=== PATIENT | female | born 1970 | race Hispanic/Latino ===

== ENCOUNTER 2018-12-28 14:23 | Observation (INO) | payer MEDICARE, BC ==
[~2018-12-28] VITALS: Ht 180.3 cm; Wt 137.5 kg
[~2018-12-28 14:23] MED LIST: ALBU18HF7 IH; AMLO10TA7 PO; ATOR10 PO; BUPR-47 PO; CARV25TA PO; GABA-531 PO; HUM10VIA6 SQ; HYDR-4153 PO; LEVO250T59 PO; LOSA100T58 PO; MONT10TA24 PO; SEVE800 PO; SUCR500T PO; TRAM50TA4 PO; TRAZ-185 PO
[2018-12-28 15:14] LABS: BASOPHILS % (AUTO) 0.9 % (0.0-5.0); EOSINOPHILS % (AUTO) 5.4 % (0.0-8.0); HEMATOCRIT 25.8 % (36-48); LYMPHOCYTES % (AUTO) 17.8 % (21.0-51.0); MEAN CORPUSCULAR HEMOGLOBIN 33.3 pg (27.0-33.0); MEAN CORPUSCULAR HGB CONC 33.8 g/dL (32.0-36.0); MEAN CORPUSCULAR VOLUME 98.5 fL (79-99); MONOCYTES % (AUTO) 9.1 % (3.0-13.0); NEUTROPHILS % (AUTO) 66.8 % (40.0-77.0); PLATELET COUNT (AUTO) 323 K/uL (130-400); RED BLOOD CELL COUNT(AUTO) 2.62 MIL/uL (4.00-5.50); RED CELL DISTRIBUTION WIDTH 14.4 % (11.0-15.5); WHITE BLOOD COUNT (AUTO) 12.1 K/uL (4.8-10.8)
[2018-12-28 15:33] LABS: ALBUMIN 3.4 g/dL (3.5-5.0); BILIRUBIN,DIRECT 0.1 mg/dL (0.0-0.3); BILIRUBIN,TOTAL 0.3 mg/dL (0.2-1.0); POTASSIUM 4.8 mmol/L (3.5-5.1); TOTAL PROTEIN, SERUM 8.2 g/dL (6.0-8.3)
[2018-12-28 15:44] LABS: CREATININE 12.8 mg/dL (0.5-1.5)
[2018-12-28 15:50] LABS: INR 0.96 (0.85-1.15); PARTIAL THROMBOPLASTIN TIME 27.5 SEC (26.3-35.5); PROTHROMBIN TIME 10.1 SEC (9.6-11.6)
[2018-12-28] MEDS ORDERED: LIDOCAINE HCL 1% MDV 50ML VIAL ONE (16:43)
[2018-12-28 17:20] VITALS: BP 164/79
[2018-12-28 17:35] VITALS: BP 146/83
--- NOTE | 2018-12-28 17:35 | NUR ---
Received patient from [facility] Right IJ Slade. Dressing clean dry and intact. No s/s of bleeding. Pt alert, awake and oriented. Bed to Lowest position. Call light within reach. Oriented to room. Dr. Correia Present and informed patient ok to go home after dialysis with Lsade due to IR not being able to do declotting till Monday or sometime next week. Patient in no distress.
[2018-12-28 17:50] VITALS: BP 161/79
[2018-12-28] MEDS ORDERED: GLUCAGON 1MG KIT 1 MG ML IM PRN (18:00)
[2018-12-28] MEDS ORDERED: DEXTROSE 50%-WATER 50 ML DISP.SYRIN IV PRN (18:00)
[2018-12-28] MEDS ORDERED: ACETAMINOPHEN 325 MG TAB PO PRN (18:00)
[2018-12-28 18:05] VITALS: BP 168/78
[2018-12-28] MEDS ORDERED: ONDANSETRON HCL 4 MG/2 ML VIAL IVP PRN (18:15)
[2018-12-28 19:43] VITALS: BP 143/91
[2018-12-28] MEDS ORDERED: INSULIN R PO SS1/2 SQ SCH (21:00)
[2018-12-28] MEDS ORDERED: HEPARIN SODIUM 5000UNIT/ML 1ML VIAL ONE (22:51)
[2018-12-28 23:00] VITALS: BP 142/86
[2018-12-28] MEDS ORDERED: SODIUM CHLORIDE 0.9% 1000ML 1,000 ML IV SCH (23:45)
[2018-12-28] MEDS ORDERED: HEPARIN SODIUM 5000UNIT/ML 1ML VIAL SQ PRN (23:45)
--- NOTE | 2018-12-29 00:30 | NUR ---
DISCHARGE Patient resting in bed with daughter at bedside. AA&O X3. No shortness of breath or distress. No pain or chest pain at this time. Obtained orders by MD Correia to discharge patient after dialysis. Patient will be going home with right IJ Slade catheter. No follow up appointments were obtained or new medications ordered for patient. Went over discharge packet and patient teaching on care of new dialysis Slade catheter. Also, to know the sign and symptoms of infection. Patient states she understands and has no questions at this time. Removed patient's 20 gauge to right AC; catheter intact. Nurse marketing communications assistant transferred patient via wheelchair with daughter carrying patient's belongings.
== END 2018-12-29 00:30 | disposition home or self-care (01) ==
LOC: EDH 14:23 → EDHIP 15:10 → 3DH 17:38
PROVIDERS: ADMIT Internal Medicine Nephrology; ATTEND Internal Medicine Nephrology
DX: E87.70 Fluid overload, unspecified (principal); J18.9 Pneumonia, unspecified organism; E11.22 Type 2 diabetes mellitus with diabetic chronic kidney disease; E11.21 Type 2 diabetes mellitus with diabetic nephropathy; E11.51 Type 2 diabetes mellitus with diabetic peripheral angiopathy without gangrene; I12.0 Hypertensive chronic kidney disease with stage 5 chronic kidney disease or end stage renal disease; E87.5 Hyperkalemia; N18.6 End stage renal disease; D64.9 Anemia, unspecified; D72.829 Elevated white blood cell count, unspecified; E78.5 Hyperlipidemia, unspecified; G47.30 Sleep apnea, unspecified; J44.9 Chronic obstructive pulmonary disease, unspecified; Z91.19 Patient's noncompliance with other medical treatment and regimen; Z88.8 Allergy status to other drugs, medicaments and biological substances
CPT/HCPCS: 36415; 36556; 77001; 80048; 80076; 82948; 85025; 85610; 85730; 93005; 99284; C1752; C1894; G0378 ×9; J1644 ×3; J3490; 90935; 96372; G0257

== ENCOUNTER 2019-03-25 20:37 | Inpatient (IN) | payer MEDICARE, BC | END 2019-03-29 15:50 | disposition home or self-care (01) | LOC: EDH 20:37 → EDHIP 22:31 → 4BH 23:37 | DX: A41.9 Sepsis, unspecified organism (principal); N18.6 End stage renal disease; I12.0 Hypertensive chronic kidney disease with stage 5 chronic kidney disease or end stage renal disease ==

== ENCOUNTER 2019-05-12 21:27 | Emergency (ER) | payer MEDICARE ==
[~2019-05-12 21:27] MED LIST changes: -HYDR-4153 PO; -LEVO250T59 PO; +LEVO500T2 PO; -SUCR500T PO
[2019-05-12] MEDS ORDERED: HYDROCODONE/ACETAMINOPHEN 10/325 MG TAB ONE (21:51)
== END 2019-05-12 23:00 | disposition home or self-care (01) ==
LOC: EDH 21:27
DX: S82.832A Other fracture of upper and lower end of left fibula, initial encounter for closed fracture (principal); J44.9 Chronic obstructive pulmonary disease, unspecified; I12.0 Hypertensive chronic kidney disease with stage 5 chronic kidney disease or end stage renal disease; E11.22 Type 2 diabetes mellitus with diabetic chronic kidney disease; N18.6 End stage renal disease; E07.9 Disorder of thyroid, unspecified; Z88.1 Allergy status to other antibiotic agents; Z87.891 Personal history of nicotine dependence; Z99.2 Dependence on renal dialysis; W18.39XA Other fall on same level, initial encounter; Y93.89 Activity, other specified; Y92.89 Other specified places as the place of occurrence of the external cause; Y99.8 Other external cause status
CPT/HCPCS: 29505; 73562; 73590

== ENCOUNTER 2019-05-14 03:53 | Emergency (ER) | payer MEDICARE | END 2019-05-14 06:17 | disposition home or self-care (01) | LOC: EDH 03:53 | DX: M25.572 Pain in left ankle and joints of left foot (principal); I12.0 Hypertensive chronic kidney disease with stage 5 chronic kidney disease or end stage renal disease; E11.22 Type 2 diabetes mellitus with diabetic chronic kidney disease; N18.6 End stage renal disease; J44.9 Chronic obstructive pulmonary disease, unspecified; E78.5 Hyperlipidemia, unspecified; E07.9 Disorder of thyroid, unspecified; Z99.2 Dependence on renal dialysis; Z79.4 Long term (current) use of insulin; Z88.1 Allergy status to other antibiotic agents | CPT/HCPCS: 29515; 73590; 73600 ==

== ENCOUNTER 2019-12-03 08:08 | Day surgery (SDC) | payer MEDICARE ==
[~2019-12-03] VITALS: Ht 170.2 cm; Wt 131.1 kg
[~2019-12-03 08:08] MED LIST changes: -ALBU18HF7 IH; +ASPI-1197 PO; -ATOR10 PO; +DOCU100C33 PO; +FERR210T PO; +LEVO200T10 PO; -LEVO500T2 PO; +SODIUM CHLORIDE 0.9% 1000ML 1,000 ML IV ONE; -TRAZ-185 PO
[2019-12-03 08:29] VITALS: BP 136/40
[2019-12-03] MEDS ORDERED: PROPOFOL 10 MG/ML 20ML VIAL IV ONE (09:20)
[2019-12-03] MEDS ORDERED: MONT10TA21 PO (09:25)
[2019-12-03] MEDS ORDERED: OMEP20CA12 PO (09:25)
[2019-12-03] MEDS ORDERED: auryxia PO (09:25)
[2019-12-03] MEDS ORDERED: FLUT1AER IH (09:25)
[2019-12-03 09:37] VITALS: BP 115/55
[2019-12-03 09:42] VITALS: BP 122/69
[2019-12-03 09:47] VITALS: BP 112/54
[2019-12-03 09:52] VITALS: BP 115/57
[2019-12-03 09:57] VITALS: BP 133/63
== END 2019-12-03 10:15 | disposition home or self-care (01) ==
LOC: ENDO 08:08 → DAH 08:08 → ENDO 10:15
PROVIDERS: ATTEND Internal Medicine
DX: K92.1 Melena (principal); K63.5 Polyp of colon; K64.1 Second degree hemorrhoids; I12.0 Hypertensive chronic kidney disease with stage 5 chronic kidney disease or end stage renal disease; N18.6 End stage renal disease; E03.9 Hypothyroidism, unspecified; F32.9 Major depressive disorder, single episode, unspecified; J44.9 Chronic obstructive pulmonary disease, unspecified; E78.5 Hyperlipidemia, unspecified; E66.9 Obesity, unspecified; E11.22 Type 2 diabetes mellitus with diabetic chronic kidney disease; K21.9 Gastro-esophageal reflux disease without esophagitis; Z88.8 Allergy status to other drugs, medicaments and biological substances; Z98.890 Other specified postprocedural states; Z79.899 Other long term (current) drug therapy; Z68.42 Body mass index [BMI] 45.0-49.9, adult; Z79.82 Long term (current) use of aspirin; Z82.49 Family history of ischemic heart disease and other diseases of the circulatory system; Z83.3 Family history of diabetes mellitus
CPT/HCPCS: 36415; 45380; 82948 ×2; 84132; 88305; A4215; A4221; A4222; A4223; A4606; A4615; A4663; J2704; J7030

== ENCOUNTER 2020-02-12 15:42 | Inpatient (IN) | payer MEDICARE ==
[~2020-02-12] VITALS: Ht 175.3 cm; Wt 127.1 kg
[~2020-02-12 15:42] MED LIST changes: +ACET-66 PO; +AMOX-420 PO; -FERR210T PO; +FLUT1AER IH; +HYDR-4068 PO; +LUBI24CA2 PO; +MONT10TA21 PO; -MONT10TA24 PO; +OMEP20CA12 PO; +PANT20TA12 PO; -SODIUM CHLORIDE 0.9% 1000ML 1,000 ML IV ONE; +auryxia PO
[2020-02-12 17:06] LABS: EOSINOPHILS % (AUTO) 2.5 % (0.0-8.0); HEMATOCRIT 24.9 % (36-48); LYMPHOCYTES % (AUTO) 19.2 % (21.0-51.0); MEAN CORPUSCULAR HEMOGLOBIN 29.3 pg (27.0-33.0); MEAN CORPUSCULAR HGB CONC 30.1 g/dL (32.0-36.0); MEAN CORPUSCULAR VOLUME 97.3 fL (79-99); MONOCYTES % (AUTO) 7.9 % (3.0-13.0); NEUTROPHILS % (AUTO) 68.7 % (40.0-77.0); PLATELET COUNT (AUTO) 226 K/uL (130-400); RED BLOOD CELL COUNT(AUTO) 2.56 MIL/uL (4.00-5.50); RED CELL DISTRIBUTION WIDTH 15.1 % (11.0-15.5); WHITE BLOOD COUNT (AUTO) 8.9 K/uL (4.8-10.8)
[2020-02-12 17:23] LABS: INR 1.06 (0.85-1.15); PARTIAL THROMBOPLASTIN TIME 27.8 SEC (26.3-35.5); PROTHROMBIN TIME 11.4 SEC (9.6-11.6)
[2020-02-12 17:25] LABS: CREATININE 4.7 mg/dL (0.5-1.5); POTASSIUM 3.9 mmol/L (3.5-5.1)
[2020-02-12 17:29] LABS: ALBUMIN 2.3 g/dL (3.5-5.0); BILIRUBIN,TOTAL 0.3 mg/dL (0.2-1.0); TOTAL PROTEIN, SERUM 7.4 g/dL (6.0-8.3)
[2020-02-12] MEDS ORDERED: PEG 3350/NA SULF,BICARB,CL/KCL 4000 ML SOLN PO SCH (17:45)
[2020-02-12] MEDS ORDERED: COMPOUND PO MISCELLANEOUS 1 EACH MISC MISC PRN (18:15)
[2020-02-12] MEDS: VANCOMYCIN 250MG/5ML ORAL SOLUTION 40ML PO SCH ×2 (18:30)
[2020-02-12 20:25] VITALS: BP 127/71
--- NOTE | 2020-02-12 20:30 | NUR ---
patient admitted at 20:30. patient wound vac reinforced dressing and wound vac placed (patient came to the floor without a wound vac. dianejemima kept theirs) will need wound vac replaced on monday (mondays, wednesdays, fridays)
[2020-02-12] MEDS: ACETAMINOPHEN 325 MG TAB PO PRN (21:22)
[2020-02-12] MEDS ORDERED: LUBI24CA2 PO (22:53)
[2020-02-13] VITALS (11 sets, daily range): BP systolic 121–165; BP diastolic 36–81
[2020-02-13] MEDS: VANCOMYCIN 250MG/5ML ORAL SOLUTION 40ML PO SCH ×8 (00:16→17:51)
--- NOTE | 2020-02-13 02:00 | NUR ---
patient threw bright red blood with clots and claimed it was a bowel movement. all the sheets were soaked in blood. it was not formed stool.
[2020-02-13 05:13] LABS: MEAN CORPUSCULAR HEMOGLOBIN 28.8 pg (27.0-33.0); MEAN CORPUSCULAR HGB CONC 31.2 g/dL (32.0-36.0); MEAN CORPUSCULAR VOLUME 92.5 fL (79-99); PLATELET COUNT (AUTO) 142 K/uL (130-400); RED BLOOD CELL COUNT(AUTO) 2.81 MIL/uL (4.00-5.50); RED CELL DISTRIBUTION WIDTH 16.3 % (11.0-15.5); WHITE BLOOD COUNT (AUTO) 8.5 K/uL (4.8-10.8)
[2020-02-13 05:44] LABS: BAND NEUTROPHILS % (MANUAL) 1 % (0-2); BASOPHILS % (MANUAL) 2 % (0-2); EOSINOPHILS % (MANUAL) 5 % (1-6); LYMPHOCYTES % (MANUAL) 27 % (22-44); MONOCYTES % (MANUAL) 5 % (2-9); SEGMENTED NEUTROPHILS % 60 % (40-70)
[2020-02-13 05:45] LABS: MAN.DIFF COMMENT-IMPRESSION MANUAL DIFFERENTIAL
[2020-02-13 06:36] LABS: ALBUMIN 2.2 g/dL (3.5-5.0); BILIRUBIN,TOTAL 0.4 mg/dL (0.2-1.0); CREATININE 4.8 mg/dL (0.5-1.5); POTASSIUM 4.4 mmol/L (3.5-5.1); TOTAL PROTEIN, SERUM 6.7 g/dL (6.0-8.3)
--- NOTE | 2020-02-13 08:00 | NUR ---
AM SHIFT ASSESSMENT. NPO.
[2020-02-13] MEDS: PANTOPRAZOLE SODIUM 40 MG TABLET.DR PO SCH (09:00)
--- NOTE | 2020-02-13 11:06 | NUR ---
INITIAL Patient lives with daughter. Emergency contact is daughter, Tessy Lewis, . No home services. DME: BPM, walker with seat, glucometer (uses insulin), shower chair, O2 concentrator/portable. O2 is thru [facility]. PCP is dr. René Larson. Pharmacy is [facility]. DCP is home. Addendum: 02/13/20 at 1108 by HUGO MONTEZ SS Amended: Links added.
--- NOTE | 2020-02-13 12:16 | NUR ---
TO GI LAB NOW FOR COLONOSCOPY.
[2020-02-13] MEDS ORDERED: PROPOFOL 10 MG/ML 20ML VIAL IV ONE (13:14)
--- NOTE | 2020-02-13 14:10 | NUR ---
BACK FROM GI. PROCEDURE ABORTED, PT. NOT CLEAN, WILL PREP AGAIN AND RESCHEDULE AGAIN FOR TOMORROW.
--- NOTE | 2020-02-13 15:00 | NUR ---
CONSENT FOR HD TOMORROW HAS BEEN SIGNED.
[2020-02-13] MEDS ORDERED: PEG 3350/NA SULF,BICARB,CL/KCL 4000 ML SOLN PO SCH (17:00)
--- NOTE | 2020-02-13 17:00 | NUR ---
started on prep for colonoscopy again.
--- NOTE | 2020-02-13 20:00 | NUR ---
ANURIA Addendum: 02/14/20 at 0131 by SANDRA BURTON RN RN Amended: Links added.
[2020-02-14] VITALS (22 sets, daily range): BP systolic 119–180; BP diastolic 30–87
[2020-02-14] MEDS: VANCOMYCIN 250MG/5ML ORAL SOLUTION 40ML PO SCH ×10 (00:26→23:14)
[2020-02-14] MEDS: ACETAMINOPHEN 325 MG TAB PO PRN (03:54)
[2020-02-14 05:29] LABS: HEMATOCRIT 26.3 % (36-48); MEAN CORPUSCULAR HGB CONC 32.3 g/dL (32.0-36.0); MEAN CORPUSCULAR VOLUME 92.9 fL (79-99); PLATELET COUNT (AUTO) 196 K/uL (130-400); RED BLOOD CELL COUNT(AUTO) 2.83 MIL/uL (4.00-5.50); RED CELL DISTRIBUTION WIDTH 16.3 % (11.0-15.5); WHITE BLOOD COUNT (AUTO) 9.6 K/uL (4.8-10.8)
[2020-02-14 05:41] LABS: EOSINOPHILS % (MANUAL) 2 % (1-6); LYMPHOCYTES % (MANUAL) 19 % (22-44); MONOCYTES % (MANUAL) 11 % (2-9); SEGMENTED NEUTROPHILS % 68 % (40-70)
[2020-02-14 05:42] LABS: MAN.DIFF COMMENT-IMPRESSION MANUAL DIFFERENTIAL; PLATELET MORPHOLOGY COMMENT ADEQUATE
[2020-02-14 05:44] LABS: CREATININE 6.4 mg/dL (0.5-1.5); POTASSIUM 3.4 mmol/L (3.5-5.1)
--- NOTE | 2020-02-14 06:00 | NUR ---
PATIENT HAS BEEN ON NSR ALL NIGHT, AT 0430 INFORMED PATIENT AGAIN THAT THE ENEMA WAS GOING TO HAVE TO BE DONE. PATIENT REFUSED, STATED "I ALREADY TOLD THE OTHER NURSE I WAS GOING TO COMPLETE THE WATER MEDICATION, SO I WOULD NOT HAVE THAT". INFORMED PATIENT OF IMPORTANCE OF HAVING THE COLON CLEANED OUT. PATIENT HAS BEEN HAVING TARRY COLOR WATER STOOLS. PATIENT STILL REFUSED.
--- NOTE | 2020-02-14 09:50 | NUR ---
PAGED DR. ETIENNE PATIENT HAD A BOWEL MOVEMENT, DARK GREEN IN COLOR, WATERY IN CONSISTENCY. STOOL IS MURKY AND NOT CLEAR. PAGED DR. ETIENNE TO REPORTS PATIENTS STOOL SINCE PATIENT HAS COLONOSCOPY SCHEDULED FOR TODAY. PAGED DR. ETIENNE AT [phone], AWAITING CALLBACK.
[2020-02-14] MEDS ORDERED: LIDOCAINE HCL 1% 20 ML VIAL ONE (11:49)
[2020-02-14] MEDS ORDERED: PROPOFOL 10 MG/ML 20ML VIAL IV ONE ×2 (11:49→12:01)
[2020-02-14] MEDS: PANTOPRAZOLE SODIUM 40 MG TABLET.DR PO SCH (13:37)
[2020-02-14] MEDS ORDERED: HYDROMORPHONE HCL 0.5 MG/0.5 ML ML ONE (15:18)
--- NOTE | 2020-02-14 15:35 | NUR ---
WOUND VAC DRESSING CHANGE SPOKE TO DR. PATEL REGARDING PATIENT. MD REPLIED TO PERFORM WOUND VAC CHANGE TODAY.
[2020-02-14] MEDS: HYDROMORPHONE HCL 0.5 MG/0.5 ML ML IVP PRN ×2 (16:44→23:20)
--- NOTE | 2020-02-14 19:30 | NUR ---
PATIENT COMPLETED DIALYSIS 4 LITERS/3HOURS. PATIENT WITHOUT ANY COMPLAINTS OFFERED AT THIS TIME.
[2020-02-14] MEDS: CARVEDILOL 25 MG TABLET PO SCH (21:00)
[2020-02-15] VITALS: BP 113/59
[2020-02-15 04:00] VITALS: BP 143/67
[2020-02-15 06:08] LABS: HEMATOCRIT 24.7 % (36-48); MEAN CORPUSCULAR HEMOGLOBIN 29.8 pg (27.0-33.0); MEAN CORPUSCULAR VOLUME 93.2 fL (79-99); PLATELET COUNT (AUTO) 181 K/uL (130-400); RED BLOOD CELL COUNT(AUTO) 2.65 MIL/uL (4.00-5.50); RED CELL DISTRIBUTION WIDTH 16.1 % (11.0-15.5); WHITE BLOOD COUNT (AUTO) 7.7 K/uL (4.8-10.8)
[2020-02-15] MEDS: VANCOMYCIN 250MG/5ML ORAL SOLUTION 40ML PO SCH ×6 (06:19→18:22)
[2020-02-15 06:24] LABS: POTASSIUM 3.4 mmol/L (3.5-5.1)
[2020-02-15] MEDS: LEVOTHYROXINE 100 MCG TABLET PO SCH (06:43)
[2020-02-15 08:00] VITALS: BP 152/69
[2020-02-15] MEDS: SEVELAMER HCL 800 MG TABLET PO SCH ×3 (08:00→17:00)
[2020-02-15 08:06] LABS: BASOPHILS % (MANUAL) 2 % (0-2); EOSINOPHILS % (MANUAL) 1 % (1-6); LYMPHOCYTES % (MANUAL) 28 % (22-44); MONOCYTES % (MANUAL) 3 % (2-9); PLATELET MORPHOLOGY COMMENT ADEQUATE; SEGMENTED NEUTROPHILS % 66 % (40-70)
[2020-02-15] MEDS: HYDROMORPHONE HCL 0.5 MG/0.5 ML ML IVP PRN ×2 (08:11→15:51)
[2020-02-15] MEDS: DOCUSATE SODIUM 100 MG CAP PO SCH (09:00)
[2020-02-15] MEDS: LUBIPROSTONE 24 MCG CAP PO SCH (09:00)
[2020-02-15] MEDS: BUPROPION HCL 150 MG TABLET.SA PO SCH (10:36)
[2020-02-15] MEDS: GABAPENTIN 300 MG CAPSULE PO SCH (10:36)
[2020-02-15] MEDS: AMLODIPINE BESYLATE 5 MG TAB PO SCH (10:36)
[2020-02-15] MEDS: CARVEDILOL 25 MG TABLET PO SCH ×2 (10:37→21:12)
[2020-02-15] MEDS: LOSARTAN 100 MG TABLET PO SCH (10:37)
[2020-02-15] MEDS: MONTELUKAST SODIUM 10 MG TAB PO SCH (10:40)
[2020-02-15] MEDS: PANTOPRAZOLE SODIUM 40 MG TABLET.DR PO SCH (10:40)
[2020-02-15] MEDS: TRAMADOL HCL 50 MG TABLET PO PRN (10:44)
[2020-02-15 12:00] VITALS: BP 143/67
[2020-02-15 16:00] VITALS: BP 121/57
--- NOTE | 2020-02-15 19:25 | NUR ---
PM Assessment Received alone in bed, routine assessment done, plan of care discuss, made aware & in agreement DCP to [facility] once cleared & accepted. Reported pt will need to continue wound vac treatment on discharge. Verified with pt if she has been working with physical therapy, stated never had a therapy session. Pt claimed she was told non weight bearing to her left leg but willing to learn how to be out of bed & on the chair, claimed this is what the wound care doctor advised her. Also verified with the pt is she has some circulation issues, claimed she had scanning of her leg & was told everything came back OK. Pt currently denies discomfort.
[2020-02-15 19:53] VITALS: BP 143/52
[2020-02-16 00:03] VITALS: BP 118/50
[2020-02-16] MEDS: VANCOMYCIN 250MG/5ML ORAL SOLUTION 40ML PO SCH ×8 (00:12→20:14)
[2020-02-16] MEDS: HYDROMORPHONE HCL 0.5 MG/0.5 ML ML IVP PRN ×4 (00:46→20:19)
[2020-02-16 03:20] VITALS: BP 146/59
[2020-02-16] MEDS: TRAMADOL HCL 50 MG TABLET PO PRN ×2 (03:34→11:21)
[2020-02-16 05:29] LABS: CREATININE 6.6 mg/dL (0.5-1.5); HEMATOCRIT 23.3 % (36-48); MEAN CORPUSCULAR HEMOGLOBIN 30.2 pg (27.0-33.0); MEAN CORPUSCULAR HGB CONC 32.2 g/dL (32.0-36.0); PLATELET COUNT (AUTO) 172 K/uL (130-400); POTASSIUM 3.4 mmol/L (3.5-5.1); RED BLOOD CELL COUNT(AUTO) 2.48 MIL/uL (4.00-5.50); WHITE BLOOD COUNT (AUTO) 7.8 K/uL (4.8-10.8)
[2020-02-16 05:33] LABS: BAND NEUTROPHILS % (MANUAL) 2 % (0-2); EOSINOPHILS % (MANUAL) 3 % (1-6); LYMPHOCYTES % (MANUAL) 27 % (22-44); MAN.DIFF COMMENT-IMPRESSION MANUAL DIFFERENTIAL; MONOCYTES % (MANUAL) 5 % (2-9); SEGMENTED NEUTROPHILS % 63 % (40-70)
[2020-02-16 05:34] LABS: PLATELET MORPHOLOGY COMMENT ADEQUATE
[2020-02-16] MEDS: LEVOTHYROXINE 100 MCG TABLET PO SCH (06:28)
[2020-02-16 08:00] VITALS: BP 137/56
--- NOTE | 2020-02-16 11:00 | NUR ---
Plan of care discussed with RN PATIENT WILL LIKELY NEED TO GO BACK TO [facility] FOR CONTINUED CARE WITH WOUND VAC -OR-- HAVE AMPUTATION CM TO FOLLOW Addendum: 02/16/20 at 1345 by GARTH ALAS RN CM Amended: Links added.
[2020-02-16] MEDS: CARVEDILOL 25 MG TABLET PO SCH ×2 (11:22→20:37)
[2020-02-16] MEDS: DOCUSATE SODIUM 100 MG CAP PO SCH (11:22)
[2020-02-16] MEDS: PANTOPRAZOLE SODIUM 40 MG TABLET.DR PO SCH (11:22)
[2020-02-16] MEDS: LOSARTAN 100 MG TABLET PO SCH (11:22)
[2020-02-16] MEDS: BUPROPION HCL 150 MG TABLET.SA PO SCH (11:23)
[2020-02-16] MEDS: MONTELUKAST SODIUM 10 MG TAB PO SCH (11:23)
[2020-02-16] MEDS: GABAPENTIN 300 MG CAPSULE PO SCH (11:23)
[2020-02-16] MEDS: AMLODIPINE BESYLATE 5 MG TAB PO SCH (11:24)
[2020-02-16] MEDS: SEVELAMER HCL 800 MG TABLET PO SCH ×3 (11:32→16:43)
[2020-02-16 11:36] VITALS: BP 145/74
[2020-02-16] MEDS: LUBIPROSTONE 24 MCG CAP PO SCH (11:51)
[2020-02-16 16:00] VITALS: BP 149/63
[2020-02-16 20:00] VITALS: BP 148/50
--- NOTE | 2020-02-16 20:40 | NUR ---
MEDS SHIFT ASSESSMENT DONE, PLEASE REFER TO CHART. PT VERBALIZES RELIEF FROM PAIN. DUE MEDS ADMINISTERED, TOLERATED WELL. KEPT RESTED AND COMFORTABLE. CALL LIGHT WITHIN REACH. WILL MONITOR PT. Addendum: 02/17/20 at 0229 by SALONI MEIJA RN RN Amended: Links added.
[2020-02-17] MEDS: VANCOMYCIN 250MG/5ML ORAL SOLUTION 40ML PO SCH ×8 (00:35→19:58)
[2020-02-17] MEDS: TRAMADOL HCL 50 MG TABLET PO PRN (00:42)
[2020-02-17 00:44] VITALS: BP 153/63
[2020-02-17] MEDS: HYDROMORPHONE HCL 0.5 MG/0.5 ML ML IVP PRN ×3 (03:00→21:45)
--- NOTE | 2020-02-17 03:00 | NUR ---
PAIN PT CALLS FOR PAIN MEDICATION. CLAIMS OF PAIN ON RT LEG. MEDICATED WITH DILAUDID IV. KEPT COMFORTABLE IN BED. ENCOURAGED TO GO BACK TO SLEEP. WILL RE-ASSESS PT.
[2020-02-17 04:00] VITALS: BP 135/54
[2020-02-17 05:37] LABS: MEAN CORPUSCULAR HEMOGLOBIN 29.6 pg (27.0-33.0); MEAN CORPUSCULAR HGB CONC 31.7 g/dL (32.0-36.0); MEAN CORPUSCULAR VOLUME 93.1 fL (79-99); PLATELET COUNT (AUTO) 159 K/uL (130-400); RED BLOOD CELL COUNT(AUTO) 2.47 MIL/uL (4.00-5.50); RED CELL DISTRIBUTION WIDTH 15.5 % (11.0-15.5); WHITE BLOOD COUNT (AUTO) 8.3 K/uL (4.8-10.8)
[2020-02-17 05:46] LABS: EOSINOPHILS % (MANUAL) 1 % (1-6); LYMPHOCYTES % (MANUAL) 24 % (22-44); MONOCYTES % (MANUAL) 3 % (2-9); SEGMENTED NEUTROPHILS % 72 % (40-70)
[2020-02-17 05:47] LABS: MAN.DIFF COMMENT-IMPRESSION MANUAL DIFFERENTIAL; PLATELET MORPHOLOGY COMMENT ADEQUATE
[2020-02-17 05:53] LABS: CREATININE 7.8 mg/dL (0.5-1.5); PHOSPHORUS 5.9 mg/dL (2.5-4.9)
[2020-02-17] MEDS: LEVOTHYROXINE 100 MCG TABLET PO SCH (06:09)
--- NOTE | 2020-02-17 06:11 | NUR ---
MEDS PT STILL AWAKE, WATCHING ON HER TABLET. DUE MEDS ADMINISTERED, TOLERATED WELL. KEPT RESTED AND COMFORTABLE. FOR MORE CARE.
[2020-02-17 08:00] VITALS: BP 146/77
[2020-02-17] MEDS: SEVELAMER HCL 800 MG TABLET PO SCH ×3 (08:00→17:00)
[2020-02-17] MEDS: LOSARTAN 100 MG TABLET PO SCH (09:00)
[2020-02-17] MEDS: CARVEDILOL 25 MG TABLET PO SCH ×2 (09:00→19:57)
[2020-02-17] MEDS: AMLODIPINE BESYLATE 5 MG TAB PO SCH (09:00)
[2020-02-17] MEDS: DOCUSATE SODIUM 100 MG CAP PO SCH (09:13)
[2020-02-17] MEDS: GABAPENTIN 300 MG CAPSULE PO SCH (09:13)
[2020-02-17] MEDS: LUBIPROSTONE 24 MCG CAP PO SCH (09:13)
[2020-02-17] MEDS: PANTOPRAZOLE SODIUM 40 MG TABLET.DR PO SCH (09:13)
[2020-02-17] MEDS: BUPROPION HCL 150 MG TABLET.SA PO SCH (09:13)
[2020-02-17] MEDS: MONTELUKAST SODIUM 10 MG TAB PO SCH (09:14)
[2020-02-17] MEDS ORDERED: NITROGLYCERIN 0.4 MG SL TAB SL PRN (11:00)
[2020-02-17] MEDS ORDERED: SODIUM CHLORIDE 0.9% 1000ML 1,000 ML IV PRN (11:00)
[2020-02-17] MEDS ORDERED: 0.9% SODIUM CHLORIDE 1000 ML IV BAG IV PRN (11:00)
[2020-02-17] MEDS ORDERED: ACETAMINOPHEN 325 MG TAB PO PRN (11:00)
[2020-02-17 11:59] VITALS: BP 141/60
[2020-02-17] MEDS: ONDANSETRON HCL 4 MG/2 ML VIAL IVP PRN (12:44)
--- NOTE | 2020-02-17 13:32 | NUR ---
DIALYSIS TREATMENT COMPLETED , WITH A REMOVAL OF 3 LITER TOLERATE WELL
--- NOTE | 2020-02-17 14:36 | NUR ---
Per Dr. Correia, Wound Care Services are to be reconsulted today to re-evaluate in wound vac to left lower extremity is still needed. Order entered, call placed to [facility] front desk supervisor, message left for with import export clerk requesting call back from Director.
[2020-02-17] MEDS ORDERED: EPOETIN ALFA 10,000 UNIT/ML VIAL SQ SCH (15:00)
--- NOTE | 2020-02-17 15:43 | NUR ---
CM NOTE MEET WITH PATIENT IN ROOM. DISCUSSED NEW REFERRAL FOR SNF FOR WOUND CARE AND PT. PER PATIENT, VERBAL OK WITH [facility]. [facility] AND [facility] FAXED AND RECEIVED, BOTH SALVATORE AND LIZY FROM [facility] AWARE OF REFERRAL. WILL FOLLOW UP ACCORDINGLY.
--- NOTE | 2020-02-17 15:45 | NUR ---
[facility] consult Patient was not assessed at this time. Dr. Moore was contacted by patient's nurse, Rosangela QUINTANA, and gave orders to continue wound vac. No [facility] recommendations required at this time.
[2020-02-17 16:00] VITALS: BP 143/69
--- NOTE | 2020-02-17 16:19 | NUR ---
1437 explained to Trice(Charge Nurse) and Rosangela(RN) that I am not able to go into patients room because of Contact Isolation. I asked Rosangela if she could give the patient BPCI Letter. I stated i would be calling patient explaining the Letter. I tried calling patient several times but line was busy. At 1607 I spoke to Suzan(BRCUE), I asked if she could please give pt Letter and check if patient had a phone. I told her to give pt my extension so she could call me with any questions.
--- NOTE | 2020-02-17 16:50 | NUR ---
CM NOTE PER SALVATORE, PATIENT APPROVED FOR SNF. PENDING TO FAX FINAL WOUND VAC/WOUND CARE RECOMMENDATIONS AND PT NOTES, WILL FOLLOW UP WHEN AVAILABLE.
--- NOTE | 2020-02-17 17:55 | NUR ---
GINETTE WOUND VAC DONE WITH HELP. TO HER LEFT LEG, WITH WOUND PICTURES ,DONE, AND WOUND VAC SETTING CURRENT, WITH NO LEAKAGE , TOLEATE WELL
--- NOTE | 2020-02-17 20:00 | NUR ---
MEDS SHIFT ASSESSMENT DONE, PLEASE REFER TO CHART. DUE MEDS ADMINISTERED, TOLERATED WELL. KEPT RESTED AND COMFORTABLE. CALL LIGHT WITHIN REACH. WILL MONITOR PT. Addendum: 02/17/20 at 2217 by SALONI MEJIA RN RN Amended: Links added.
--- NOTE | 2020-02-17 21:45 | NUR ---
PAIN PT CALLS FOR PAIN MEDICATION, CLAIMS THAT HER LLE IS HURTING BAD. MEDICATED WITH DILAUDID IV. KEPT RESTED AND COMFORTABLE. CALL LIGHT WITHIN REACH. WILL RE-ASSESS PT.
[2020-02-17 23:41] VITALS: BP 131/56
[2020-02-18] MEDS: VANCOMYCIN 250MG/5ML ORAL SOLUTION 40ML PO SCH ×6 (00:42→12:31)
--- NOTE | 2020-02-18 04:10 | NUR ---
PAIN PT COMPLAINTS OF LLE PAINS. MEDICATED WITH DILAUDID IV. KEPT RESTED AND COMFORTABLE IN BED. ENCOURAGED TO REST AND TRY TO GET SOME MORE SLEEP. WILL RE-ASSESS PT. Addendum: 02/18/20 at 0426 by SALONI MEJIA RN RN Amended: Links added.
[2020-02-18] MEDS: HYDROMORPHONE HCL 0.5 MG/0.5 ML ML IVP PRN ×2 (04:17→10:40)
[2020-02-18 04:32] VITALS: BP 132/77
[2020-02-18 06:01] LABS: HEMATOCRIT 22.9 % (36-48); MEAN CORPUSCULAR HGB CONC 31.4 g/dL (32.0-36.0); MEAN CORPUSCULAR VOLUME 95.4 fL (79-99); PLATELET COUNT (AUTO) 187 K/uL (130-400); RED CELL DISTRIBUTION WIDTH 16.3 % (11.0-15.5); WHITE BLOOD COUNT (AUTO) 9.3 K/uL (4.8-10.8)
[2020-02-18 06:05] LABS: CREATININE 5.8 mg/dL (0.5-1.5)
[2020-02-18] MEDS: LEVOTHYROXINE 100 MCG TABLET PO SCH (06:28)
--- NOTE | 2020-02-18 06:30 | NUR ---
MEDS AWAKENED PT FOR DUE MEDS, TOLERATED WELL. KEPT COMFORTABLE. FOR MORE CARE.
[2020-02-18 07:11] LABS: HEPATITIS Bs ANTIGEN SCREEN P Negative (Negative)
[2020-02-18 07:50] VITALS: BP 140/67
[2020-02-18] MEDS: GABAPENTIN 300 MG CAPSULE PO SCH (08:44)
[2020-02-18] MEDS: LUBIPROSTONE 24 MCG CAP PO SCH (08:44)
[2020-02-18] MEDS: DOCUSATE SODIUM 100 MG CAP PO SCH (08:45)
[2020-02-18] MEDS: MONTELUKAST SODIUM 10 MG TAB PO SCH (08:45)
[2020-02-18] MEDS: SEVELAMER HCL 800 MG TABLET PO SCH ×2 (08:45→12:00)
[2020-02-18] MEDS: PANTOPRAZOLE SODIUM 40 MG TABLET.DR PO SCH (08:45)
[2020-02-18] MEDS: CARVEDILOL 25 MG TABLET PO SCH (08:46)
[2020-02-18] MEDS: LOSARTAN 100 MG TABLET PO SCH (08:46)
[2020-02-18] MEDS: AMLODIPINE BESYLATE 5 MG TAB PO SCH (08:46)
[2020-02-18] MEDS: BUPROPION HCL 150 MG TABLET.SA PO SCH (08:46)
[2020-02-18] MEDS: ONDANSETRON HCL 4 MG/2 ML VIAL IVP PRN (10:40)
[2020-02-18 11:10] VITALS: BP 125/84
--- NOTE | 2020-02-18 12:46 | NUR ---
RUBEN SCREEN - LOS X 6 Pt admitted for GI Bleed - Rectal bleeding resolved as per MD note. Pt with L. Leg necrotizing infection, s/p debridement. Pt tolerating Renal dialysis, 75gm CC diet order - Rec to continue. Pt with Renal failure receiving Dialysis. Recommend Ivan BID, 500mg Vitamin C QD, 220mg ZnSO4 QD for wound healing support. RD to continue to monitor. Please notify RD as additional nutrition concerns arise. Thank you. Addendum: 02/18/20 at [address] RD Amended: Links added.
--- NOTE | 2020-02-18 13:40 | NUR ---
REPORT REPORT CALLED TO ANNA VERDIN AT [facility]. MED REC HAS BEEN FAXED.
--- NOTE | 2020-02-18 14:27 | NUR ---
DC PICC LINE DC PICC LINE, USING ASEPTIC TECHNIQUE, PICC LINE WAS DISCONTINUED, FIRM DIRECT PRESSURE WAS MAINTAINED FOR 3 MINUTES, BLEEDING CONTROLLED, A STERIL 4x4 GAUZE WAS APPLIED AND SECURED WITH AN OPSITE. PATIENT TOLERATED PROCEDURE WITHOUT INCIDENT.
--- NOTE | 2020-02-18 15:20 | NUR ---
[facility] CALL[place] [facility] [place] [facility]. O2 NEEDED.
--- NOTE | 2020-02-18 16:00 | NUR ---
[facility] ARRIVED TO TRANSPORT PATIENT TO [facility] AT APPROX 1600 HOURS.
--- NOTE | 2020-02-19 10:00 | NUR ---
CM NOTE WOUND CARE ORDERS AND PT NOTES FAXED AND CONFIRMED RECEIVED TO [facility].
--- NOTE | 2020-02-19 14:23 | NUR ---
DENY MEDEL FROM [facility] INFORMED ME OF MISSING RENAL DIALYSIS CHAIR SET UP FOR PATIENT. CLINICAL PACKET AND REQUEST FOR CHAIR AT [facility] FAXED AND CONFIRMED RECEIVED AT [facility] ADMISSION MAIN OFFICE. [facility], MADE AWARE.
== END 2020-02-18 16:00 | DRG 871 ==
LOC: EDH 15:42 → EDHIP 17:57 → 3BH 20:33
PROVIDERS: ADMIT Internal Medicine Nephrology; ATTEND Internal Medicine Nephrology
PROC: 0DJD8ZZ Inspection of Lower Intestinal Tract, Via Natural or Artificial Opening Endoscopic (ICD-10-PCS; principal; 2020-02-12)
DX: A41.9 Sepsis, unspecified organism (principal); N18.6 End stage renal disease; I12.0 Hypertensive chronic kidney disease with stage 5 chronic kidney disease or end stage renal disease; L03.90 Cellulitis, unspecified; D64.9 Anemia, unspecified; E11.22 Type 2 diabetes mellitus with diabetic chronic kidney disease; E11.51 Type 2 diabetes mellitus with diabetic peripheral angiopathy without gangrene; L89.322 Pressure ulcer of left buttock, stage 2; Z99.2 Dependence on renal dialysis; E11.621 Type 2 diabetes mellitus with foot ulcer; E66.01 Morbid (severe) obesity due to excess calories; I25.10 Atherosclerotic heart disease of native coronary artery without angina pectoris; J44.9 Chronic obstructive pulmonary disease, unspecified; L97.529 Non-pressure chronic ulcer of other part of left foot with unspecified severity; Z91.11 Patient's noncompliance with dietary regimen; E78.5 Hyperlipidemia, unspecified
CPT/HCPCS: 36415; 36430; 45378; 71045; 74176; 76705; 80048; 80053; 82150; 82270; 82550; 82948; 83690; 84100; 84484; 85025; 85027; 85610; 85730; 86704; 86706; 86850; 86900; 86901; 86922; 87340; 87520; 90935; 93005; 97039; 99291; G0378; J0885; J1170; J2405; J2704; J3370; P9016